=== PATIENT | male | born 1985 | race Caucasian/White ===

== ENCOUNTER 2025-01-09 07:38 | Emergency (ER) | payer SELFPAY ==
[~2025-01-09] VITALS: Ht 167.6 cm; Wt 126.1 kg
[2025-01-09] MEDS ORDERED: ACET-907 PO (07:48)
[2025-01-09] MEDS: CIPROFLOXACIN HC OTIC SUSPENSION AD ONE (08:15)
[2025-01-09] MEDS ORDERED: CIPRHCOTIC OTIC (08:15)
[2025-01-09] MEDS: KETOROLAC 60MG 2ML VIAL IM ONE (08:28)
[2025-01-09] MEDS: ACETAMINOPHEN 500 MG TAB PO ONE (09:07)
[2025-01-09 09:27] VITALS: BP 137/75; TEMP 99.1; O2SAT 97
== END 2025-01-09 09:29 | disposition home or self-care (01) ==
LOC: M ED 07:38
DX: H66.91 Otitis media, unspecified, right ear (principal); Z79.2 Long term (current) use of antibiotics; Z79.1 Long term (current) use of non-steroidal anti-inflammatories (NSAID)
CPT/HCPCS: 96372; 99283; J1885